=== PATIENT | female | born 1955 | race Caucasian/White ===

== ENCOUNTER 2018-05-21 14:20 | Emergency (ER) | payer BC ==
[~2018-05-21] VITALS: Ht 165.1 cm; Wt 76.7 kg
[2018-05-21 14:35] VITALS: BP 131/69
[2018-05-21 15:29] LABS: Urine Bacteria FEW /hpf (None Seen); Urine Blood 2+ /uL (Negative); Urine Hyaline Cast FEW /lpf (0 - 2); Urine Mucus FEW (None Seen); Urine Specific Gravity 1.029 (1.001-1.035); Urine WBC 343 /hpf (0 - 5); Urine WBC Clumps PRESENT /hpf (None Seen)
[2018-05-21] MEDS ORDERED: cefTRIAXone SOD 1,000 MG VL IM ONE (16:00)
== END 2018-05-21 16:08 | disposition home or self-care (01) ==
LOC: ER 14:20
DX: N39.0 Urinary tract infection, site not specified (principal); E11.9 Type 2 diabetes mellitus without complications; M19.90 Unspecified osteoarthritis, unspecified site; Z90.89 Acquired absence of other organs
CPT/HCPCS: 81001; 82962; 96372; 99283; J0696